=== PATIENT | female | born 1945 | race Caucasian/White ===

== ENCOUNTER 2023-12-28 16:47 | Emergency (ER) | payer OTHER ==
--- OUTSIDE RECORDS SUMMARY | 2023-12-28 16:50 | XMS REPORT | Continuity of Care Document ---
Author Name Unknown Address [address] [facility]. [address] [place] [address] [facility] thconnect Address [address] [facility]. [address] [place] [address] Care Team Providers Care Single Stroke Preformer Name Role Phone Gui Macdonald Attending Clinician Unavailable Physician, No Primary or Family Admitting Clinic goran Unavailable Payers Payer Name Policy Type Policy Number Effective Date Expirati on Date Source Allergies, Adverse Reactions, Alerts Allergy Name Allergy Type Status Severity Reaction(s) Onset Date Inactive Date Treating Clinician Comments Source No Known Allergie s DA Active U 12-07 00:00: 00 [facility] Encounters Start Date/Time End Date/Time Encounter Type Admission Type Attending Clinicians Care Facility Care Department Encounter ID Source 2022-12-11 05:45:00 2022-12-11 05:45:00 Outpatient Gui Hastings [facility] OUTD [id number] 62 [facility] Results Test Description Test Time Test Comments Results Result Co mments Source PROTHROMBIN [id number] 14:48:00* Test Item Value Reference Range Interpretation Comme nts PROTHROMBIN TIME PATIENT (test code = PTP) 11.8 SECONDS 9.3-12.9 N INTERNATIONAL NORMAL RATIO (test code = INR) 1.1 0.8-1.2 N TARGET INR BY INDICATION Indication INR1. Prophylaxis of venous thrombosis 2.0 - 3.0 (orthopedic surgery), Prophylaxis of venous thrombosis (other than high-risk surgery), Treatment of Deep Vein Thrombosis/Pulmonary Embolism, Prevention of systemic embolism - Tissue heart valves, Acute Myocardial Infarction (to prevent systemic embolism), Valvular heart disease, Atrial Fibrillation, Bileaflet mechanical valve in aortic position.2. Mechanical prosthetic valves (high risk), 2.5 - 3.5 Presence of Lupus Anticoagulant or Antiphospholipid Antibodies, Prevention of systemic embolism - Acute Myocardial Infarction (to prevent recurrent infarct). CBC W/AUTO [id number] 14:45:00* Test Item Value Reference Range Interpretation Comme nts WHITE BLOOD CELL (test code = WBC) 4.4 x10 3/uL 4.5-11.0 L RED BLOOD CELL (test code = RBC) 3.75 x10 6/uL 3.54-5.02 N HEMOGLOBIN (test code = HGB) 11.6 g/dL 11.0-15.0 N HEMATOCRIT (test code = HCT) 35.6 % 33.0-45.0 N MEAN CELL VOLUME (test code = MCV) 94.9 fL 81.0-99.0 N MEAN CELL HGB (test code = MCH) 30.9 pg 27.0-33.0 N MEAN CELL HGB CONCETRATION (test code = MCHC) 32.6 g/dL 33.0-37.0 L RED CELL DISTRIBUTION WIDTH CV (test code = RDW) 12.9 % 11.5-14.5 N RED CELL DISTRIBUTION WIDTH SD (test code = RDW-SD) 44.5 fL 37.0-54.0 N PLATELET COUNT (test code = PLT) 324 x10 3/uL 150-400 N MEAN PLATELET VOLUME (test c ode = MPV) 8.7 fL 7.0-9.0 N NEUTROPHIL % (test code = NT%) 65.7 % 56.0-77.0 N IMMATURE GRANULOCYTE % (test code = IG%) 0.7 % 0.0-2.0 N LYMPHOCYTE % (test code = LY%) 20.2 % 14.0-32.0 N MONOCYTE % (test code = MO%) 8.2 % 4.8-9.0 N EOSINOPHIL % (test code = EO%) 5.0 % 0.3-3.7 H BASOPHIL % (test code = BA%) 0.2 % 0.0-2.0 N NUCLEATED RBC % (test code = NRBC%) 0.0 % 0-0 N NEUTROPHIL # (test code = NT#) 2.90 x10 3/uL 2.0-7.6 N IMMATURE GRANULOCYTE # (test code = IG#) 0.03 x10 3/uL 0.00-0.03 N LYMPHOCYTE # (test code = LY#) 0.89 x10 3/uL 1.0-3.8 L MONOCYTE # (test code = MO#) 0.36 x10 3/uL 0.1-0.8 N EOSINOPHIL # (test code = EO#) 0.22 x10 3/uL 0.0-0.2 H BASOPHIL # (test code = BA#) 0.01 x10 3/uL 0.0-0.2 N NUCLEATED RBC # (test code = NRBC#) 0.00 x10 3/uL 0.0-0.1 N MANUAL DIFF REQUIRED (test c ode = MDIFF) NO - XR CHEST 2 [id number] 00:00:00 [facility] : 1945 Sex: F FAX: En Hernandez MD [phone] [place]: St: PRE FAX: Gui Slaughter MD [phone] --------- [facility] : 1945 Age/S: 77/F [address] [place] [address] Unit #: [id number] Loc: [place] [address] Phys: Gui Macdonald MD Acct: [id number] Dis Date: Status: PRE SDC PHONE #: [phone] Exam Date: 12/07/2022 1425 FAX #: [phone] Reason: PRE OP EXAMS: CPT CODE: [id number] XR CHEST 2 [id number] PROCEDURE INFORMATION: Exam: XR Chest Exam date and time: 12/07/2022 2:23 PM Age: 77 years oldClinical indication: Pre-operative exam; Respiratory screening exam; Additional info: Pre op TECHNIQUE: Imaging protocol: Radiologic exam of the chest. Views: 2 views. PA and Lateral COMPARISON: No re levant prior studies available. FINDINGS: Lungs: There are normal lung volumes without consolidation or interstitial opacities. There is minimal subsegmental atelectasis in the left midlung zone and left lung base. Pleural spaces: There is minimal blunting of the left costophrenic angle suggesting pleural thickening. No pneumothorax. Heart/Mediastinum: The cardiac silhouette is enlarged. Bones/joints: No acute abnormality seen. IMPRESSION: Minimal subsegmental atelectasis in the left midlung zone and left lung base. at 1512 Reported and signed by: Humberto Bender M.D. CC: En Hoffman MD; Gui Macdonald MD Technologist: Sushil Garcia Trnscrd Date/Time/By: 12/07/2022 (1511) : By: Marisol Orig Print D/T: S: 12/07/2022 (1511) PAGE 1 Signed Report Notes Date/Time Note Provider Source 2022-12-18 11:22:00 [id number] Szs/[id number]:22:36037 5-[address] [address] PATIENT NAME: RON SIMON ADMIT DATE: 12/11/22ACCOUNT NO: [id number] ROOM NO: AGE: 77 REPORT TYPE: OPERATIVE REPORT SEX: F ADMITTING PHYSICIAN: ATTENDING PHYSICIAN:Gui Macdonald MD OPERATION DATE: 12/11/2022 PREOPERATIVE DIAGNOSIS: POSTOPERATIVE DIAGNOSIS: PROCEDURE PERFORMED:1. Selective coronary angiogram.2. Left heart catheterization.3. Right heart catheterization. SURGEON: Gui Macdonald MD CARPET LOOM FIXER: ANESTHESIA: INDICATIONS:1. Significant limiting shortness of breath with minimal exertion.2. Unstable angina. ACCESS:1. Right radial artery, a 6-Montenegrin closed with a TR Band.2. Right basilic vein, 5-Montenegrin closed with manual pressure. COMPLICATIONS: None. ESTIMATED BLOOD LOSS: Less than 20 mL DESCRIPTION OF PROCEDURE: After risks, benefits and alternatives were explained, the patient agreed to proceed and signed informed consent. The patient was brought into cardiac catheterization laboratory, prepped and draped in the usual sterile fashion and then I accessed the right radial artery using pediatric micropuncture kit, placed a 6-Montenegrin slender sheath and then accessed the right basilic vein and placed 5-Montenegrin slender sheath. Then, I took a 5-Montenegrin balloon-tipped Gobler catheter into the right atrium, right ventricle, pulmonary artery and pulmonary wedge, obtained waveform and pressure and then removed this catheter. Access was removed and manual pressure was used with good hemostasis. Then, I took a 5-Montenegrin Springfield 4.0 catheter into the aortic root over the J-wire through the right radial access and across the aortic valvewith the wire and the catheter was advanced measured LVEDP and pullback not recorded any gradient and then using the Springfield catheter, I engaged the left main, took standard views and then exchanged the RCA, took standard views. PATIENT NAME: RON SIMON Catheter was removed, sheath was removed. TR band was applied with good hemostasis. FINDINGS: Selective coronary angiogram.1. Left main: Large and normal.2. LAD: Large vessel with a proximal 30-40% and diagonal branches appears to be normal and then mid to distal LAD appears to be normal.3. Left circumflex normal.4. RCA is normal. No significant disease.5. LVEDP was borderline at 11 mmHg. The right heart catheterization numbers: RA pressure was 11. The ____ pressurewas 47/10 with mean of 17, PA pressure was 45/20 with mean of 30, and pulmonary wedge pressure was 17 mmHg. CONCLUSION:1. Mild nonobstructive coronary artery disease.2. Mildly elevated LVEDP.3. Moderate pulmonary hypertension, which is likely venous due to diastolic heart failure. RECOMMENDATION: Diuretics and medical management of coronary artery disease and follow up in the office. Dictated By: Gui Macdonald MD Date Dictated: 12/18/2022 11:22:55Date Transcribed: 12/18/2022 14:04:18SR/Michael #: [id number] ID: [id number] by Gui Macdonald MD On 03/05/2023 10:54:23 AM at 1054 PATIENT NAME: RON SIMON [id number]:04:00G.[id number] lable for patient [id number]:54:57 [facility] 2022-12-07 14:03:00 [id number] IbzZeM1+[id number]:03:16793 4-0064 [place] [id number] PATIENT NAME: RON SIMON ADMIT DATE: ACCOUNT NO: [id number] ROOM NO: AGE: 77 REPORT TYPE: eELECTROCARDIOGRAM REPORT SEX: F ADMITTING PHYSICIAN: ATTENDING PHYSICIAN:Gui Macdonald MD Order:[id number] Reason : PRE OP Test Date/Time Stamp:SatDec 07 2022 14:03:24Blood Pressure : / mmHGVent. Rate : 064 BPM Atrial Rate : 064 BPM P-R Int : 182 ms QRS Dur : 074 ms QT Int : 404 ms P-R-T Axes : 056 021 051 degrees QTc Int : 416 ms Normal sinus rhythmNonspecific T wave abnormalityAbnormal ECGPRE_OPConfirmed by MALINI SVEILLA MD ([id number]) on 12/07/2022 5:39:49 PM Referred By: Gui Macdonald Confirmed by:MALINI SEVILLA MD at 4326 PATIENT NAME: RON SIMON .[id number] AVAvailable for patient [id number]:40:11 [facility]
--- NOTE | 2023-12-28 17:48 | RAD REPORT ---
EXAM DESCRIPTION: CT - CTHCSPWOC - 12/28/2023 5:36 pm CLINICAL HISTORY: Trauma, head and neck injury. fall COMPARISON: No comparisons TECHNIQUE: Axial 5 mm thick images of the head were obtained. Axial 2 mm thick images of the cervical spine were obtained with sagittal and coronal reconstruction images generated and reviewed. All CT scans are performed using dose optimization technique as appropriate and may include automated exposure control or mA/KV adjustment according to patient size. FINDINGS: CT HEAD WITHOUT CONTRAST: No acute hemorrhage, hydrocephalus or extra-axial collection is identified.No areas of brain edema or midline shift. Remote appearing right basal ganglia/ wells radiata lacunar infarct. Remote appearin g left caudate infarct. The paranasal sinuses and mastoids are clear.The calvarium is intact. CT CERVICAL SPINE WITHOUT CONTRAST: No fracture or subluxation.No prevertebral soft tissues swelling is identified. IMPRESSION: No acute intracranial or cervical spine findings.
[2023-12-28] MEDS ORDERED: MORPHINE 2 MG/ML SYR ONE ×2 (18:21→19:13)
[2023-12-28] MEDS ORDERED: NA CHLORIDE 0.9% 500 ML ONE (18:21)
[2023-12-28 19:04] LABS: Absolute Eosinophils 0.1 K/uL (0-0.5); Absolute Lymphocytes (CBC) 1.4 K/uL (0.7-4.9); Absolute Monocytes 0.3 K/uL (0.1-1.3); Absolute Neutrophil 4.2 K/uL (1.8-8.0); Basophils % 0.4 % (0-1.3); Eosinophils % 1.6 % (0-4.4); Hematocrit 36.2 % (36.0-45.0); Hemoglobin 12.2 g/dL (12.0-15.0); Lymphocytes % 23.4 % (15.3-44.8); MCH 31.8 pg (27.0-35.0); MCHC 33.8 g/dL (32.0-36.0); MCV 93.8 fL (80-100); MPV 7.1 fL (7.6-11.3); Monocytes % 4.8 % (3.3-12.3); Neutrophils % 69.8 % (41.7-73.7); Platelets 280 thou/uL (152-406); RBC Red Blood Cell Count 3.86 M/uL (3.86-4.86); Red Cell Distribution Width 13.7 % (12.1-15.2)
--- NOTE | 2023-12-28 19:07 | RAD REPORT ---
EXAM DESCRIPTION: RAD - Wrist Left 3 View - 12/28/2023 6:54 pm CLINICAL HISTORY: Pain;Swelling;Deformity COMPARISON: Wrist Left 3 View dated 07/01/2016 FINDINGS/IMPRESSION: No acute fracture. The previous distal radial fracture and ulnar styloid fractu re has healed. No malalignment. Mild degenerative changes are present at the first carpometacarpal josh int.
--- NOTE | 2023-12-28 19:11 | ER ---
Nurse's Notes [facility] Name: Diane Oconnell Age: 78 yrs Sex: Female : 1945 Arrival Date: 12/28/2023 Time: 16:47 Bed 6 Private MD: Diagnosis: Contusion of unspecified part of head, initial encounter;Pain in left wrist;Fall on same level from slipping, tripping and stumbling without subsequent striking against object Presentation: 12/27 17:07 Chief complaint: Left wrist pain after mechanical fall from standing onto tile floor 30 hb mins [employer]. Small hematoma noted to left eyebrow area and obvious deformity to left wrist. Coronavirus screen: At this time, the client does not indicate any symptoms associated with coronavirus-19. Ebola Screen: No symptoms or risks identified at this time. Initial Sepsis Screen: Does the patient meet any 2 criteria? No. Patient's initial sepsis screen is negative. Does the patient have a suspected source of infection? No. Patient's initial sepsis screen is negative. Risk Assessment: Do you want to hurt yourself or someone else? Patient reports no desire to harm self or others. Onset of symptoms was December 28, 2023. 17:07 Method Of Arrival: Ambulatory hb 17:07 Acuity: ZACKERY 3 hb Triage Assessment: 17:08 General: Appears in no apparent distress. uncomfortable, Behavior is calm, cooperative. hb Pain: Pain currently is 8 out of 10 on a pain scale. Neuro: Level of Consciousness is awake, alert, obeys commands, Oriented to person, place, time, situation. Cardiovascular: Patient's skin is warm and dry. Respiratory: Respiratory effort is even, unlabored, Respiratory pattern is regular, symmetrical. Musculoskeletal: left wrist. Historical: - Allergies: 17:08 No Known Allergies; hb - Home Meds: 17:08 Lipitor Oral [Active]; unknown HTM med [Active]; hb - PMHx: 17:08 Hypertensive disorder; hb - PSHx: 17:08 None; hb - Immunization history:: Adult Immunizations up to date. - Infectious Disease History:: Denies. - Social history:: Smoking status: Patient denies any tobacco usage or history of. Screenin:[address] [facility] ED Fall Risk Assessment (Adult) History of falling in the last 3 months, bp including since admission No falls in past 3 months (0 pts). Abuse screen: Denies threats or abuse. Denies injuries from another. Nutritional screening: No deficits noted. Tuberculosis screening: No symptoms or risk factors identified. Assessment: 18:00 General: Appears uncomfortable, Behavior is cooperative, appropriate for age, anxious, bp MOVED FROM FAST TRACK. Pain: Complains of pain in left arm. Neuro: Level of Consciousness is awake, alert, obeys commands, Oriented to Appropriate for age. Cardiovascular: No deficits noted. Respiratory: No deficits noted. GI: No signs and/or symptoms were reported involving the gastrointestinal system. : No signs and/or symptoms were reported regarding the genitourinary system. Musculoskeletal: Bony deformity noted of dorsal aspect of left forearm. 20:05 Reassessment: Patient appears in no apparent distress at this time. Patient and/or bm8 family updated on plan of care and expected duration. Pain level reassessed. Patient is alert, oriented x 3, equal unlabored respirations, skin warm/dry/pink. Musculoskeletal: Bony deformity noted of left arm Reports pain in left arm. Vital Signs: 17:07 BP 128 / 104; Pulse 78; Resp 16; Temp 98(TE); Pulse Ox 100% ; Weight 68.04 kg; Height 5 hb ft. 2 in. ; Pain 8/10; 20:05 BP 129 / 92; Pulse 80; Resp 17; Temp 98; Pulse Ox 100% ; Pain 2/10; bm8 17:07 Body Mass Index 27.44 (68.04 kg, 157.48 cm) hb 17:07 Pain Scale: Adult hb 20:05 Pain Scale: Adult bm8 Eddie Coma Score: 20:05 Eye Response: spontaneous(4). Motor Response: obeys commands(6). Verbal Response: bm8 oriented(5). Total: 15. ED Course: 16:52 Patient arrived in ED. ra3 17:08 Triage completed. hb 17:08 Arm band placed on. hb 17:13 Ja Grijalva PA is PHCP. cp 17:13 Kwan Hernández MD is Attending Physician. cp 17:36 CT Head C Spine In Process Unspecified. EDMS 17:44 Thanh Turner, RN is Primary Nurse. bp 18:00 Patient has correct armband on for positive identification. bp 18:38 CBC with Diff Sent. bp 18:38 Basic Metabolic Panel Sent. bp 18:38 Inserted saline lock: 22 gauge in right forearm, using aseptic technique. Blood bp collected. 18:56 Wrist Left (3 View) XRAY In Process Unspecified. EDMS 20:05 Provided Education on: post er care and need for follow up with ortho. Client placed on bm8 continuous cardiac and pulse oximetry monitoring. NIBP monitoring applied. Pulse ox on. NIBP on. Door closed. Noise minimized. Warm blanket given. Verbal reassurance given. 20:05 No provider procedures requiring assistance completed. IV discontinued, intact, bm8 bleeding controlled, No redness/swelling at site. Pressure dressing applied. Orthoglass splint: Sugar tong splint applied on left arm. Sling applied to left arm. Administered Medications: 18:38 Drug: morphine IVP or IV 2 mg IVP once over 4 mins Route: IVP; Infused Over: 4 mins; bp Site: right forearm; 20:09 Follow up: Response: No adverse reaction bm8 18:38 Drug: NS 0.9% IV 500 ml IV at 100 ml/hr continuous Route: IV; Rate: 100 ml/hr; Site: bp right forearm; 20:09 Follow up: Response: No adverse reaction; IV Status: Completed infusion; IV Intake: bm8 500ml 19:15 Drug: Acetaminophen PO 1000 mg PO once Route: PO; bm8 20:09 Follow up: Response: No adverse reaction bm8 20:05 Drug: morphine IVP or IV 2 mg IVP once over 4 mins Route: IVP; Infused Over: 4 mins; bm8 Site: right antecubital; 20:09 Follow up: Response: No adverse reaction bm8 Medication: 20:05 VIS not applicable for this client. bm8 Intake: 20:09 IV: 500ml; Total: 500ml. bm8 Outcome: 19:11 Discharge ordered by . cp 20:05 Discharged to home ambulatory, bm8 20:05 Condition: stable 20:05 Discharge instructions given to patient, family, Instructed on discharge instructions, follow up and referral plans. medication usage, safety practices, Demonstrated understanding of instructions, follow-up care, medications, Prescriptions given X 1, 20:08 Patient left the ED. bm8 Signatures: Dispatcher [employer] EDNY Ja Grijalva PA PA cp Baxter, Heather, RN RN hb Peltier, Brian, RN RN bp Kandis Du ra3 Kal Cash, RN RN bm8
--- NOTE | 2023-12-28 19:11 | EDPHYS ---
Physician Documentation [facility] Name: Diane Oconnell Age: 78 yrs Sex: Female : 1945 Arrival Date: 12/28/2023 Time: 16:47 Bed 6 Private MD: ED Physician Kwan Hernández HPI: 12/27 17:25 This 78 yrs old Female presents to ER via Ambulatory with complaints of reinjured arm, cp Fall Injury, Eye Injury. 17:25 Details of fall: The patient fell from an upright position, while walking. cp 17:25 Onset: The symptoms/episode began/occurred today. Associated injuries: The patient cp sustained injury to the head, contusion, left wrist, deformity, painful injury. 17:25 Patient is a 78-year-old female who presents to the emergency department after reported cp fall at home. Patient reports she was carrying a bag in her hand when she lost her balance and fell onto a tile floor. She did strike the left side of her head but denies loss of consciousness and now complains of left wrist pain. Patient reports a previous left wrist fracture. Historical: - Allergies: 17:08 No Known Allergies; hb - Home Meds: 17:08 Lipitor Oral [Active]; unknown HTM med [Active]; hb - PMHx: 17:08 Hypertensive disorder; hb - PSHx: 17:08 None; hb - Immunization history:: Adult Immunizations up to date. - Infectious Disease History:: Denies. - Social history:: Smoking status: Patient denies any tobacco usage or history of. ROS: 17:30 Neuro: Positive for headache, cp 17:30 Eyes: Negative for injury, pain, redness, and discharge, cp 17:30 Constitutional: Negative for body aches, chills, fever, poor PO intake, 17:30 Neck: Negative for pain with movement, pain at rest, stiffness, 17:30 Cardiovascular: Negative for chest pain, palpitations, 17:30 Respiratory: Negative for cough, shortness of breath, wheezing, 17:30 Abdomen/GI: Negative for nausea, vomiting, diarrhea, constipation, 17:30 Back: Negative for pain at rest, pain with movement, radiated pain, 17:30 MS/extremity: Positive for injury or acute deformity, decreased range of motion, pain, tenderness, 17:30 All other systems are negative, Exam: 17:35 Constitutional: The patient appears in no acute distress, alert, awake, cp non-diaphoretic, non-toxic, well developed, well nourished, uncomfortable, 17:35 Head/face: Noted is contusion, that is superficial, of the left faith and left side cp of forehead, ecchymosis, that is mild, 17:35 Eyes: Periorbital structures: appear normal, Pupils: equal, round, and reactive to light and accomodation, Extraocular movements: intact throughout, Conjunctiva: normal, no exudate, no injection, Sclera: no appreciated abnormality, Lids and lashes: appear normal, bilaterally, 17:35 ENT: External ear(s): are unremarkable, Ear canal(s): are normal, clear, TM's: dullness, bilaterally, Nose: is normal, Mouth: Lips: moist, Oral mucosa: pink and intact, moist, Posterior pharynx: Airway: no evidence of obstruction, patent, 17:35 Neck: C-spine: vertebral tenderness, is not appreciated, crepitus, is not appreciated, ROM/movement: pain, is not appreciated, limited range of motion, is not appreciated, nuchal rigidity, is not appreciated, 17:35 Chest/axilla: Inspection: normal, Palpation: crepitus, is not appreciated, tenderness, is not appreciated, 17:35 Cardiovascular: Rate: normal, Rhythm: regular, 17:35 Respiratory: the patient does not display signs of respiratory distress, Respirations: normal, no use of accessory muscles, no retractions, labored breathing, is not present, Breath sounds: are clear throughout, no decreased breath sounds, no stridor, no wheezing, 17:35 Abdomen/GI: Inspection: abdomen appears normal, Palpation: abdomen is soft and non-tender, in all quadrants, 17:35 Back: pain, is absent, ROM is normal, 17:35 Musculoskeletal/extremity: Extremities: grossly normal except: noted in the left wrist: decreased ROM, deformity, pain, ROM: limited passive range of motion due to pain, in the left wrist, Pulses: noted to be 2+ in the left radial artery, the left hand Sensation intact. 17:35 Neuro: Orientation: to person, place \T\ time. Mentation: is normal, Motor: moves all fours, strength is normal, 18:42 ECG was reviewed by the Attending Physician. cp Vital Signs: 17:07 BP 128 / 104; Pulse 78; Resp 16; Temp 98(TE); Pulse Ox 100% ; Weight 68.04 kg; Height 5 hb ft. 2 in. ; Pain 8/10; 20:05 BP 129 / 92; Pulse 80; Resp 17; Temp 98; Pulse Ox 100% ; Pain 2/10; bm8 17:07 Body Mass Index 27.44 (68.04 kg, 157.48 cm) hb 17:07 Pain Scale: Adult hb 20:05 Pain Scale: Adult bm8 Eddie Coma Score: 20:05 Eye Response: spontaneous(4). Motor Response: obeys commands(6). Verbal Response: bm8 oriented(5). Total: 15. MDM: 17:13 Patient medically screened. cp 19:10 Data reviewed: vital signs, nurses notes, radiologic studies, CT scan, plain films. cp 19:10 Differential diagnosis: closed head injury, contusion, fracture, multiple trauma. I cp considered the following discharge prescriptions or medication management in the emergency department Medications were administered in the Emergency Department. See MAR. Independent interpretation of the following test(s) in the Emergency Department X-Ray: My interpretation is images of left wrist negative for acute fracture. Counseling: I had a detailed discussion with the patient and/or guardian regarding the historical points, exam findings, and any diagnostic results supporting the discharge/admit diagnosis, radiology results, the need for outpatient follow up, a orthopedic surgeon, to return to the emergency department if symptoms worsen or persist or if there are any questions or concerns that arise at home. Response to treatment: the patient's symptoms have markedly improved after treatment, and as a result, I will discharge patient. Special discussion: Based on the patient's history, exam and DX evaluation, there is no indication for emergent intervention or inpatient TX. It is understood by the patient/guardian that if the SXs persist or worsen they need to return immediately for re-evaluation. 12/27 17:22 Order name: Basic Metabolic Panel; Complete Time: 19:21 cp 12/27 19:22 Interpretation: Normal except: NA 132; GFR 74. cp 12/27 17:22 Order name: CBC with Diff; Complete Time: 19:21 cp 05/04 17:12 Order name: Wrist Left (3 View) XRAY; Complete Time: 19:10 hb 12/27 17:22 Order name: CT Head C Spine; Complete Time: 18:10 cp 12/27 17:22 Order name: IV; Complete Time: 18:38 cp 12/27 17:22 Order name: Labs collected and sent; Complete Time: 18:38 cp 12/27 19:01 Order name: Wrist Splint cp EC:42 Rate is 68 beats/min. Rhythm is regular. DC interval is normal. QRS interval is normal. cp QT interval is normal. T waves are Inverted in lead aVR. Interpreted by me. Reviewed by me. Administered Medications: 18:38 Drug: morphine IVP or IV 2 mg IVP once over 4 mins Route: IVP; Infused Over: 4 mins; bp Site: right forearm; 20:09 Follow up: Response: No adverse reaction bm8 18:38 Drug: NS 0.9% IV 500 ml IV at 100 ml/hr continuous Route: IV; Rate: 100 ml/hr; Site: bp right forearm; 20:09 Follow up: Response: No adverse reaction; IV Status: Completed infusion; IV Intake: bm8 500ml 19:15 Drug: Acetaminophen PO 1000 mg PO once Route: PO; bm8 20:09 Follow up: Response: No adverse reaction bm8 20:05 Drug: morphine IVP or IV 2 mg IVP once over 4 mins Route: IVP; Infused Over: 4 mins; bm8 Site: right antecubital; 20:09 Follow up: Response: No adverse reaction bm8 Disposition Summary: 12/28/23 19:11 Discharge Ordered Notes: Location: Home cp Problem: new cp Symptoms: have improved cp Condition: Stable cp Diagnosis - Contusion of unspecified part of head, initial encounter cp - Pain in left wrist cp - Fall on same level from slipping, tripping and stumbling without subsequent cp striking against object Followup: cp - With: Private Physician - When: 2 - 3 days - Reason: Recheck today's complaints Discharge Instructions: - Discharge Summary Sheet cp - Facial or Scalp Contusion cp - Head Injury, Adult cp - Wrist Pain, Adult cp Forms: - Medication Reconciliation Form cp - Antibiotic Education cp - Prescription Opioid Use cp - Patient Portal Instructions cp - Leadership Thank You Letter cp Prescriptions: - Ibuprofen 800 mg Oral Tablet - take 1 tablet ORAL route every 8 hours As needed take with food; 30 tablet; cp Refills: 0, Product Selection Permitted Addendum: 12/29/2023 21:55 Co-signature as Attending Physician, Kwan Hernández MD I reviewed the patient's care r n provided by the Advanced Practice Provider and agree with the diagnosis and treatment plan. Signatures: Dispatcher [employer] EDMS Kwan Hernández MD MD rn Ja Grijalva PA PA cp Paty Castillo RN RN Thanh Turner RN RN bp Kal Cash RN RN bm8 Corrections: (The following items were deleted from the chart) 12/27 17:13 17:13 Wrist Left 3 View+RAD.RAD.BRZ ordered. EDMS EDMS 17:23 17:23 BASIC METABOLIC PANEL+C.LAB.BRZ ordered. EDMS EDMS 17:23 17:23 CBC+H.LAB.BRZ ordered. EDMS EDMS 18:11 18:11 Wrist Left 3 View+RAD.RAD.BRZ ordered. EDMS EDMS
[2023-12-28] MEDS ORDERED: ACETAMINOPHEN 500 MG TAB ONE (19:12)
[2023-12-28 19:15] LABS: Anion Gap 8.6 mEq/L (5.0-15.0); Potassium 3.6 mEq/L (3.5-5.1)
[2023-12-28 20:32] VITALS: BP 129/92; TEMP 98; O2SAT 100
--- NOTE | 2023-12-30 14:43 | EKG ---
Test Date: 2023-12-28 Test Time: 18:35:32 [place]: BP MEASUREMENT RESULTS: Intervals: Rate: 68 HI: 180 QRSD: 70 QT: 406 QTc: 431 Dingess: P: 46 HI: 180 QRS: -5 T: 21 INTERPRETIVE STATEMENTS: Normal sinus rhythm Minimal voltage criteria for LVH, may be normal variant Nonspecific T wave abnormality Abnormal ECG No previous ECG available for comparison Electronically Signed On 12-30-23 14:38:34 CDT by Gui Macdonald
== END 2023-12-28 20:08 | disposition home or self-care (01) ==
LOC: ER 16:47
DX: S00.83XA Contusion of other part of head, initial encounter (principal); M25.532 Pain in left wrist; W01.0XXA Fall on same level from slipping, tripping and stumbling without subsequent striking against object, initial encounter; I10 Essential (primary) hypertension
CPT/HCPCS: 93005; 85025; 80048; 36415; 70450; 72125; 73110; 99285; J2270 ×2; J7040